=== PATIENT | female | born 1985 | race Two or more races ===

== ENCOUNTER → 2019-12-21 18:20 | Observation (INO) | payer OTHER | END | disposition home or self-care (01) | LOC: 4S 18:20 | PROVIDERS: ADMIT Obstetrics & Gynecology; ATTEND Obstetrics & Gynecology | DX: Z03.818 Encounter for observation for suspected exposure to other biological agents ruled out (principal); O09.513 Supervision of elderly primigravida, third trimester; Z3A.28 28 weeks gestation of pregnancy | CPT/HCPCS: 87635; G0378 ==

== ENCOUNTER 2020-03-06 13:25 | Observation (INO) | payer OTHER | END 2020-03-06 13:40 | disposition home or self-care (01) | LOC: 4S 13:25 | PROVIDERS: ADMIT Obstetrics & Gynecology; ATTEND Obstetrics & Gynecology | DX: Z03.818 Encounter for observation for suspected exposure to other biological agents ruled out (principal); O26.893 Other specified pregnancy related conditions, third trimester; Z3A.39 39 weeks gestation of pregnancy | CPT/HCPCS: 87635; G0378 ==

== ENCOUNTER 2020-03-08 06:47 | Inpatient (IN) | payer OTHER ==
[~2020-03-08] VITALS: Ht 149.9 cm; Wt 63.0 kg
[~2020-03-08 06:47] MED LIST: RINGERS SOLUTION,LACTATED 1,000 ML IV ONE
[2020-03-08] MEDS ORDERED: RINGERS SOLUTION,LACTATED 1,000 ML IV ONE (06:53)
[2020-03-08] MEDS ORDERED: CITRIC ACID/SODIUM CITRATE 30 ML SOLUTION UDCUP PO ONE (07:00)
[2020-03-08] MEDS ORDERED: METOCLOPRAMIDE HCL 5 MG/ML 2 ML VIAL IVP ONE (07:00)
[2020-03-08 07:21] VITALS: BP 113/78
[2020-03-08] MEDS ORDERED: FentaNYL CITRATE-PF 100 MCG/2 ML VIAL ONE (07:26)
[2020-03-08] MEDS ORDERED: MORPHINE SULFATE/PF 1 MG/ML 10 ML AMP ONE (07:26)
[2020-03-08] MEDS ORDERED: MIDAZOLAM HCL 2 MG/2 ML VIAL ONE (07:26)
[2020-03-08] MEDS ORDERED: ONDANSETRON HCL 4 MG/2 ML VIAL ONE (07:27)
[2020-03-08] MEDS ORDERED: DEXAMETHASONE SOD PHOS 4 MG/ML VIAL ONE (07:27)
[2020-03-08] MEDS ORDERED: BUPIVACAINE HCL/DEX-WATER/PF 0.75% 2 ML AMP ONE (07:27)
[2020-03-08] MEDS ORDERED: KETOROLAC TROMETHAMINE 30 MG/ML VIAL ONE (07:27)
[2020-03-08] MEDS ORDERED: PREN1TAB80 PO (07:30)
[2020-03-08] MEDS ORDERED: ASPI81TA39 PO (07:30)
[2020-03-08 08:01] LABS: BASOPHILS % (AUTO) 0.6 % (0.0-2.0); EOSINOPHILS % (AUTO) 0.9 % (1.0-6.0); HEMATOCRIT 30.4 % (36-46); HEMOGLOBIN 9.9 g/dL (12.0-16.0); LYMPHOCYTES # (AUTO) 1.9 K/uL (1.0-4.8); LYMPHOCYTES % (AUTO) 31.9 % (22.0-44.0); MEAN CORPUSCULAR HEMOGLOBIN 28.5 pg (26.0-34.0); MEAN CORPUSCULAR HGB CONC 32.7 G/dL (31.0-37.0); MEAN CORPUSCULAR VOLUME 87 fL (80-100); MONOCYTES # (AUTO) 0.6 K/uL (0.1-1.0); MONOCYTES % (AUTO) 9.5 % (2.0-9.0); NEUTROPHILS # (AUTO) 3.4 K/uL (1.8-7.7); NEUTROPHILS % (AUTO) 57.1 % (40.0-70.0); PLATELET COUNT (AUTO) 196 K/uL (150-450); RED BLOOD CELL COUNT(AUTO) 3.49 MIL/uL (4.00-5.20); RED CELL DISTRIBUTION WIDTH 15.2 % (11.5-14.5)
[2020-03-08] MEDS ORDERED: OxyCODONE HCL/ACETAMINOPHEN 5-325 MG TABLET PO PRN ×2 (08:15→11:45)
[2020-03-08] MEDS ORDERED: DiphenhydrAMINE HCL 50 MG/ML VIAL IVP PRN (08:15)
[2020-03-08] MEDS ORDERED: FentaNYL CITRATE-PF 100 MCG/2 ML VIAL IVP PRN (08:15)
[2020-03-08] MEDS ORDERED: ONDANSETRON HCL 4 MG/2 ML VIAL IVP PRN (08:15)
[2020-03-08] MEDS ORDERED: NALOXONE HCL 0.4 MG/ML VIAL IVP PRN (08:15)
[2020-03-08] MEDS ORDERED: GUM MASTIC/STORAX/MSAL/ALCOHOL LIQUID 0.67 ML VIAL TP ONE (08:29)
[2020-03-08 08:30] LABS: GLUCOMETER DEV NAME(LOC) 4S.; GLUCOSE,POINT OF CARE 80 MG/DL (70-110)
[2020-03-08] MEDS ORDERED: KETAMINE HCL 50 MG/ML 10 ML VIAL ONE (08:41)
[2020-03-08] MEDS ORDERED: OXYTOCIN 30 UNITS/LACT RINGERS 500 ML IV ONE (11:34)
[2020-03-08] MEDS ORDERED: OXYTOCIN 10 UNITS/ML VIAL IM ONE (12:00)
[2020-03-08] MEDS ORDERED: DEXAMETHASONE SOD PHOS 4 MG/ML VIAL IVP ONE (12:00)
[2020-03-08] MEDS ORDERED: KETOROLAC TROMETHAMINE 30 MG/ML VIAL IVP SCH (12:00)
[2020-03-08] MEDS ORDERED: LIDOCAINE/PF 2% 5 ML VIAL INJ ONE (12:00)
[2020-03-08] MEDS ORDERED: KETOROLAC TROMETHAMINE 60 MG/2 ML VIAL IM ONE (12:00)
[2020-03-08] MEDS: RINGERS SOLUTION,LACTATED 1,000 ML IV SCH ×2 (12:03→19:22)
[2020-03-08] MEDS ORDERED: LANOLIN 7 GM OINTMENT TP PRN (15:15)
[2020-03-08] MEDS ORDERED: OXYGEN THERAPY IH SCH ×2 (20:00)
[2020-03-08] MEDS: KETOROLAC TROMETHAMINE 30 MG/ML VIAL IVP SCH (21:12)
[2020-03-09] MEDS: KETOROLAC TROMETHAMINE 30 MG/ML VIAL IVP SCH (03:01)
[2020-03-09 05:44] LABS: BASOPHILS % (AUTO) 0.3 % (0.0-2.0); EOSINOPHILS % (AUTO) 0.2 % (1.0-6.0); HEMATOCRIT 22.8 % (36-46); HEMOGLOBIN 7.6 g/dL (12.0-16.0); LYMPHOCYTES # (AUTO) 2.4 K/uL (1.0-4.8); LYMPHOCYTES % (AUTO) 23.1 % (22.0-44.0); MEAN CORPUSCULAR HEMOGLOBIN 29.3 pg (26.0-34.0); MEAN CORPUSCULAR HGB CONC 33.6 G/dL (31.0-37.0); MEAN CORPUSCULAR VOLUME 87 fL (80-100); MONOCYTES # (AUTO) 0.6 K/uL (0.1-1.0); MONOCYTES % (AUTO) 6.4 % (2.0-9.0); NEUTROPHILS # (AUTO) 7.2 K/uL (1.8-7.7); PLATELET COUNT (AUTO)-OB 153 K/uL (150-450); RED BLOOD CELL COUNT(AUTO) 2.61 MIL/uL (4.00-5.20); RED CELL DISTRIBUTION WIDTH 15.3 % (11.5-14.5)
[2020-03-09] MEDS: OxyCODONE HCL/ACETAMINOPHEN 5-325 MG TABLET PO PRN ×2 (08:57→20:16)
[2020-03-09] MEDS: MAGNESIUM HYDROXIDE SUSPENSION 30 ML UDCUP PO SCH ×2 (08:58→21:28)
[2020-03-09] MEDS: IBUPROFEN 800 MG TABLET PO PRN ×2 (11:55→18:52)
[2020-03-10] MEDS: OxyCODONE HCL/ACETAMINOPHEN 5-325 MG TABLET PO PRN ×2 (00:46→12:06)
[2020-03-10] MEDS: IBUPROFEN 800 MG TABLET PO PRN ×3 (00:46→17:16)
[2020-03-10] MEDS ORDERED: MEASLES/MUMPS/RUBELLA VACCINE, LIVE 0.5 ML/VIAL SQ ONE (06:45)
[2020-03-10] MEDS: MAGNESIUM HYDROXIDE SUSPENSION 30 ML UDCUP PO SCH (07:42)
[2020-03-10] MEDS ORDERED: PERCT PO (08:41)
[2020-03-10] MEDS ORDERED: ACET-784 PO (08:43)
[2020-03-10] MEDS ORDERED: IBUP-2070 PO (08:45)
[2020-03-10] MEDS ORDERED: DOCU-275 PO (08:47)
[2020-03-10] MEDS ORDERED: IRON SUCROSE COMPLEX 100 MG in SODIUM CHLORIDE 0.9% 100 ML IV ONE (09:00)
== END 2020-03-10 17:12 | disposition home or self-care (01) | DRG 788 ==
LOC: 4S 06:47 → PREOBSVTOIN 03-13 07:13
PROVIDERS: ADMIT Obstetrics & Gynecology; ATTEND Obstetrics & Gynecology
PROC: 10D00Z1 Extraction of Products of Conception, Low, Open Approach (ICD-10-PCS; principal; 2020-03-08)
DX: O82 Encounter for cesarean delivery without indication (principal); Z3A.39 39 weeks gestation of pregnancy; Z37.0 Single live birth
CPT/HCPCS: 86850; 86900; 86901; 87081; 90707; J0690; J1100; J1756; J1885; J2250; J2405; J2590; J2765; J3010; J3490; J7050; J7120